=== PATIENT | male | born 1990 | race Caucasian/White ===

== ENCOUNTER → 2023-08-15 | Outpatient (CLI) | payer OTHER, SELFPAY ==
[2023-08-15 18:34] LABS: Free T3 3.1 pg/mL (2.18-3.98); T4 Free Direct 1.01 ng/dL (0.76-1.46); Thyroid Stim Hormone (TSH) 2.47 uIU/mL (0.358-3.74)
[2023-08-17 08:10] LABS: Thyroid Peroxidase AB < 9 IU/mL (0-34)
== END | disposition home or self-care (01) ==
LOC: MTLAB 16:27
PROVIDERS: Referring Provider Dermatology; Visit Provider Dermatology
DX: L63.8 Other alopecia areata (principal)
CPT/HCPCS: 36415; 84439; 84443; 84481; 86376